=== PATIENT | female | born 2000 | race African-American/Black ===

== ENCOUNTER 2021-07-19 13:05 | Emergency (ER) | payer BC, SELFPAY ==
--- NOTE | ~2021-07-19 | US_ITS ---
EXAMINATION: US PELVIS CLINICAL INFORMATION: Severe abdominal pain COMPARISON: CT 07/19/2021 TECHNIQUE: Ultrasound of the pelvis is performed using both transabdominal and transvaginal transducers along with Doppler. Transvaginal imaging is performed due to inadequate visualization transabdominally. FINDINGS: The uterus measures 6.6 cm in length and 3.3 x 3.8 cm in AP and transverse dimensions. The endometrial stripe measures 1.3 cm in thickness. The right ovary measures 3.3 x 2.5 x 2.5 cm and appears unremarkable. The left ovary measures 6.3 x 4.1 x 5.3 cm and contains a complex cystic structure measuring 4.7 x 4.2 x 4.6 cm. This structure contains some anechoic and hypoechoic components as well as several septations. Doppler evaluation demonstrates normal-appearing arterial and venous waveforms in the bilateral ovaries. Moderate amount of pelvic free fluid is noted. US/US pelvic and transvaginal IMPRESSION: Complex cystic structure in the left ovary measuring up to 4.7 cm, in keeping with recent CT findings. Follow-up ultrasound in 6-12 weeks is recommended to assess for resolution. Redemonstrated pelvic free fluid.
--- NOTE | ~2021-07-19 | US_ITS ---
EXAMINATION: US PELVIS CLINICAL INFORMATION: Severe abdominal pain COMPARISON: CT 07/19/2021 TECHNIQUE: Ultrasound of the pelvis is performed using both transabdominal and transvaginal transducers along with Doppler. Transvaginal imaging is performed due to inadequate visualization transabdominally. FINDINGS: The uterus measures 6.6 cm in length and 3.3 x 3.8 cm in AP and transverse dimensions. The endometrial stripe measures 1.3 cm in thickness. The right ovary measures 3.3 x 2.5 x 2.5 cm and appears unremarkable. The left ovary measures 6.3 x 4.1 x 5.3 cm and contains a complex cystic structure measuring 4.7 x 4.2 x 4.6 cm. This structure contains some anechoic and hypoechoic components as well as several septations. Doppler evaluation demonstrates normal-appearing arterial and venous waveforms in the bilateral ovaries. Moderate amount of pelvic free fluid is noted. US/US pelvic ovarian doppler IMPRESSION: Complex cystic structure in the left ovary measuring up to 4.7 cm, in keeping with recent CT findings. Follow-up ultrasound in 6-12 weeks is recommended to assess for resolution. Redemonstrated pelvic free fluid.
--- NOTE | ~2021-07-19 | CT_ITS ---
EXAMINATION: CT ABDOMEN AND PELVIS WITH CONTRAST CLINICAL INFORMATION: Severe right lower quadrant pain COMPARISON: None TECHNIQUE: Multidetector volumetric images were obtained from the superior aspect of the liver through the pubic symphysis following administration 85 mL of Omnipaque 350 intravenous contrast. Sagittal and coronal reformatted images were obtained on the technologist's workstation. Oral contrast: No This CT examination was performed using dose optimization techniques as appropriate, variously including the following: *Automated exposure control *Adjustment of mA and/or kV according to patient size (this includes techniques or standardized protocols for targeted exams where dose is matched to indication/reason for exam; i.e. extremities or head) *Use of iterative reconstruction technique DLP: 330 mGy-cm FINDINGS: LUNG BASES: The visualized lung bases are unremarkable. LIVER, GALLBLADDER, AND BILIARY TREE: The liver is normal in size, shape, and attenuation. No focal hepatic lesion or biliary ductal dilatation is present. The gallbladder is unremarkable with no evidence of radiopaque gallstones, gallbladder wall thickening, or obvious pericholecystic inflammatory changes. PANCREAS: Unremarkable. SPLEEN: Unremarkable. ADRENAL GLANDS: Unremarkable. KIDNEYS AND URETERS: Bilateral nephrograms are symmetric. No hydronephrosis or obstructing calculus identified. BLADDER: Unremarkable. GASTROINTESTINAL TRACT: No evidence of bowel obstruction or significant wall thickening. The appendix is unremarkable. No free air is seen. ABDOMINAL WALL: No significant hernia is appreciated. LYMPH NODES: Normal. VASCULAR: Unremarkable. PELVIC VISCERA: There is a mildly complex cystic structure anterior to the uterus and superior to the bladder along the midline measuring approximately 5.3 x 3.9 cm in the axial plane and 4.0 cm in cranial caudal dimension. There is thin enhancement along the periphery as well as subtle nodular foci along the right lateral aspect. Appearance and location suggests left adnexal origin. Right adnexa appears unremarkable for patient age. Moderate amount of free fluid is present in the pelvis and lower abdomen. OSSEOUS STRUCTURES: Unremarkable. CT/CT abdomen pelvis w con IMPRESSION: Mildly complex cystic structure along the midline in the anterior pelvis measuring up to 5.3 cm, suggestive of origin from the left adnexa; this may reflect a complex ovarian cyst though a cystic mass cannot be excluded. Moderate amount of associated free fluid in the pelvis and lower abdomen. Further assessment with pelvic ultrasound is recommended. Fleischner guidelines were followed.
[2021-07-19 13:30] VITALS: BP 119/70; PULSE 89; RESP 18; TEMP 36.7; O2SAT 99
[2021-07-19 16:41] LABS: MANUAL DIFF FLAG NO
[2021-07-19 16:44] LABS: Basophils Percent Auto 0.4 % (0-2); Eosinophils Absolute Auto 0.1 X10*3/uL (0.0-0.4); Eosinophils Percent Auto 0.8 % (0-4); Hematocrit 39.6 % (37.0-47.0); Hemoglobin 12.6 g/dl (12.0-16.0); Imm Gran Abs Auto 0.01 X10*3/uL (0.00-0.03); Imm Gran Pct Auto 0.1 % (0.0-0.4); Lymphocytes Absolute Auto 2.7 X10*3/uL (1.2-4.9); Lymphocytes Percent Auto 29.2 % (20-40); Mean Corpuscular HGB Conc 31.8 g/dl (31.0-35.0); Mean Corpuscular Volume 81.8 fL (80.0-98.0); Mean Platelet Volume 10.6 fL (9.4-12.3); Monocytes Absolute Auto 0.8 X10*3/uL (0.1-1.2); Monocytes Percent Auto 8.4 % (2-11); Neutrophils Absolute Auto 5.7 x10*3/uL (2.0-8.3); Neutrophils Percent Auto 61.1 % (45-73); Platelet Count 289 X10*3/uL (160-400); Red Blood Count 4.84 X10*6/uL (4.20-5.50); Red Cell Distribution Width 15.8 % (11.0-16.0); White Blood Count 9.3 X10*3/uL (4.8-10.8)
[2021-07-19 17:05] LABS: Alanine Aminotransferase 7 U/L (0-31); Albumin Level 4.2 g/dL (3.5-5.0); Blood Urea Nitrogen 6 mg/dL (9-16); Calcium 9.5 mg/dL (8.4-10.2); Estimated Glomerular Filt Rate > 60; Sodium 138 mmol/L (135-145); Total Protein 7.3 g/dL (6.5-8.0)
[2021-07-19 17:19] LABS: Alkaline Phosphatase 62 U/L (39-117); Anion Gap 11 (12-20); Aspartate Amino Transferase 14 U/L (5-31); Bilirubin Total 0.2 mg/dL (0.0-1.0); Carbon Dioxide 27 mmol/L (22-29); Chloride 104 mmol/L (96-108); Creatinine Clr Calc Pharmacy 109.5; Glucose Random 87 mg/dL (60-115)
[2021-07-19 18:52] LABS: Appearance Urine CLOUDY; Color Urine YELLOW; Glucose Urine UA NEG (NEG); Leukocyte Esterase Urine NEG (NEG); Nitrite Urine NEG (NEG); Specific Gravity - Urine 1.015 (1.005-1.025); Urine Blood NEG (NEG); Urine Ketones NEG (NEG); Urine Protein NEG (NEG-TRACE)
[2021-07-19 20:39] VITALS: BP 121/72; PULSE 66; RESP 17; O2SAT 100
--- NOTE | 2021-07-19 21:08 | ED_ITS ---
HPI - Abdominal Pain General Chief Complaint: Abdominal Pain Stated Complaint: RLQ PAIN W/URINATION Time Seen by Provider: 07/19/21 13:26 Source: patient Mode of arrival: ambulatory Limitations: no limitations History of Present Illness HPI narrative: This is a 20-year-old female with no known medical history presenting to the emergency department with complaints of severe right lower quadrant abdominal pain that started this morning. Patient tells me that this started when she was at work, the pain was so severe that she had to go home. She tells me that she has a constant pain to her right lower quadrant she rates it an 8/10. She tells me is worse with talking, walking, sitting and when she farts. Patient reports decreased appetite. She has no history of abdominal surgeries. Patient tells me she has no concern for . Last menstrual period was in November however she does have abnormal menses. She denies nausea, vomiting, fevers, chills, chest pain, shortness of breath, changes in bowel habits, dysuria, flank pain, urinary frequency and urgency. MD elicited complaint: abdominal pain Pertinent past history: none Onset (ago): day(s) (1) Pain Consistency: constant Location: RLQ and suprapubic Severity: severe Pain scale (0-10): 10 Quality: stabbing Radiation: none Migration to: no migration Exacerbating factors: movement and other (coughing, speaking, laughing, farting ) Relieving factors: nothing Associated symptoms: denies other symptoms Related Data Allergies Allergy/AdvReac Type Severity Reaction Status Date / Time Unable to Assess Allergy Verified 07/19/21 20:59 Review of Systems Review of Systems Constitutional : No Weight loss, No Fever, No Chills, No Fatigue, No Malaise, + anorexia ENT/Mouth : No sore throat, No Rhinorrhea Eyes: No Eye Pain, No Swelling, No Redness Cardiovascular : No Chest Pain, No SOB, No Dyspnea on Exertion, No Orthopnea, No Edema, No Palpitations Respiratory : No Cough, No Sputum, No Wheezing Gastrointestinal : No Nausea, No Vomiting, No Diarrhea, No Constipation, + abdominal Pain, No Hematochezia, No Melena Genitourinary : No Dysuria, No Urinary Frequency, No Hematuria, Musculoskeletal : No joint pain, No Myalgias, No Joint Swelling Skin : No Skin Lesions, No rash Neuro : No Weakness, No Numbness, No Dizziness, No Headache Psych : No Anxiety/Panic, No Depression All other systems reviewed and are negative Yes all other systems are reviewed and are negative Physical Exam Vital Signs: Vital Signs: Last Vital Signs Temp 98.0 F 07/19/21 13:30 Pulse 73 07/20/21 00:54 Resp 18 07/20/21 00:54 BP 117/40 L 07/20/21 00:54 Pulse Ox 100 07/20/21 00:54 BMI result Body Mass Index 20.0 VSS Appearance: Alert.? Oriented X3.? No acute distress.? Head: Normocephalic, atraumatic, no step-offs or deformities Eyes: Pupils equal, round and reactive to light.? ENT: Pharynx normal.? Neck: Normal inspection.? Neck supple.? CVS: Normal heart rate and rhythm.? Pulses normal.? Respiratory: No respiratory distress.? Breath sounds normal.? Abdomen: Soft and + Tenderness and right lower quadrant, positive McBurney's point, and Rovsing sign. Negative Capps sign. Negative psoas and obturator sign.? Skin: Skin warm and dry.? Normal skin color.? Normal skin turgor.? Extremities: No lower extremity edema.? No calf ttp. 5/5 strength to bilateral upper and lower extremities Back: No midline tenderness, no C-spine tenderness, full range of motion, no CVA tenderness bilaterally Neuro: Oriented X 3.? No motor deficit.? No sensory deficit. Course Reevaluation(s) Reevaluation #1: CBC within normal limits. Chemistry with no acute electrolyte abnormalities. Lipase and inflammatory markers pending. Urine clean. Time: 21:14 Reevaluation #2: CT scan with a complex cystic structure along the midline in the anterior pelvis measuring 5.3 cm suggesting origin from the left adnexa. At this time ovarian torsion cannot be ruled out patient uncomfortable and a lot of pain morphine will be given. An ultrasound ovarian Doppler will be ordered as this needs to be ruled out emergently. Time: 00:35 Reevaluation #3: Sign out given to . Dispo pending US. Time: 02:22 MDM - Abdominal Pain MDM Narrative Medical decision making narrative: 2111 20 yo f no pmhx presents with sever constant RLQ abdominal pain since this AM 8/10 w/ a/c anorexia. PE signficiacnt for + mcburneys point and rosving. Negative murphys sign Physical examination concerning for appendicitis will do a CT of the abdomen and pelvis with contrast. Patient is hemodynamically stable. Plan at this time is basic labs, imaging, urine. Medical Records Attestation: I reviewed the patient's medical records. Lab Data Attestation: I reviewed the patient's lab results. Result diagrams: 07/19/21 16:32 07/19/21 16:32 Labs: Lab Results 07/19/21 07/19/21 07/19/21 Range/Units 16:32 16:32 16:32 WBC 9.3 (4.8-10.8) X10*3/uL RBC 4.84 (4.20-5.50) X10*6/uL Hgb 12.6 (12.0-16.0) g/dl Hct 39.6 (37.0-47.0) % MCV 81.8 (80.0-98.0) fL MCH 26.0 L (27.0-33.0) pg MCHC 31.8 (31.0-35.0) g/dl RDW 15.8 (11.0-16.0) % Plt Count 289 (160-400) X10*3/uL MPV 10.6 (9.4-12.3) fL Immature Gran % (Auto) 0.1 (0.0-0.4) % Neut % (Auto) 61.1 (45-73) % Lymph % (Auto) 29.2 (20-40) % Hartley % (Auto) 8.4 (2-11) % Eos % (Auto) 0.8 (0-4) % Baso % (Auto) 0.4 (0-2) % Lymph # (Auto) 2.7 (1.2-4.9) X10*3/uL Hartley # (Auto) 0.8 (0.1-1.2) X10*3/uL Eos # (Auto) 0.1 (0.0-0.4) X10*3/uL Baso # (Auto) 0.0 (0.0-0.2) X10*3/uL Abs Immat Gran (auto) 0.01 (0.00-0.03) X10*3/uL Absolute Neuts (auto) 5.7 (2.0-8.3) x10*3/uL Absolute Nucleated RBC 0.000 (0.0-0.012) X10*3/uL Nucleated RBC % (auto) 0.0 (0.0-0.2) /100WBC ESR 10 (0-20) MM/HR Sodium 138 (135-145) mmol/L Potassium 4.0 (3.3-5.1) mmol/L Chloride 104 (96-108) mmol/L Carbon Dioxide 27 (22-29) mmol/L Anion Gap 11 L (12-20) BUN 6 L (9-16) mg/dL Creatinine 0.71 (0.5-1.4) mg/dL Estim Creat Clear Calc 109.5 Estimated GFR > 60 Random Glucose 87 (60-115) mg/dL Calcium 9.5 (8.4-10.2) mg/dL Total Bilirubin 0.2 (0.0-1.0) mg/dL AST 14 (5-31) U/L ALT 7 (0-31) U/L Alkaline Phosphatase 62 (39-117) U/L C-Reactive Protein 0.30 (< or = 0.50) mg/dL Total Protein 7.3 (6.5-8.0) g/dL Albumin 4.2 (3.5-5.0) g/dL Lipase 16 (8-78) U/L Beta HCG, Quant < 2 mIU/mL Urine Color Urine Appearance Urine pH (5.0-8.0) Ur Specific Orcas (1.005-1.025) Urine Protein (NEG-TRACE) MG/DL Urine Glucose (UA) (NEG) MG/DL Urine Ketones (NEG) MG/DL Urine Blood (NEG) Urine Nitrite (NEG) Ur Leukocyte Esterase (NEG) 07/19/21 Range/Units 18:45 WBC (4.8-10.8) X10*3/uL RBC (4.20-5.50) X10*6/uL Hgb (12.0-16.0) g/dl Hct (37.0-47.0) % MCV (80.0-98.0) fL MCH (27.0-33.0) pg MCHC (31.0-35.0) g/dl RDW (11.0-16.0) % Plt Count (160-400) X10*3/uL MPV (9.4-12.3) fL Immature Gran % (Auto) (0.0-0.4) % Neut % (Auto) (45-73) % Lymph % (Auto) (20-40) % Hartley % (Auto) (2-11) % Eos % (Auto) (0-4) % Baso % (Auto) (0-2) % Lymph # (Auto) (1.2-4.9) X10*3/uL Hartley # (Auto) (0.1-1.2) X10*3/uL Eos # (Auto) (0.0-0.4) X10*3/uL Baso # (Auto) (0.0-0.2) X10*3/uL Abs Immat Gran (auto) (0.00-0.03) X10*3/uL Absolute Neuts (auto) (2.0-8.3) x10*3/uL Absolute Nucleated RBC (0.0-0.012) X10*3/uL Nucleated RBC % (auto) (0.0-0.2) /100WBC ESR (0-20) MM/HR Sodium (135-145) mmol/L Potassium (3.3-5.1) mmol/L Chloride (96-108) mmol/L Carbon Dioxide (22-29) mmol/L Anion Gap (12-20) BUN (9-16) mg/dL Creatinine (0.5-1.4) mg/dL Estim Creat Clear Calc Estimated GFR Random Glucose (60-115) mg/dL Calcium (8.4-10.2) mg/dL Total Bilirubin (0.0-1.0) mg/dL AST (5-31) U/L ALT (0-31) U/L Alkaline Phosphatase (39-117) U/L C-Reactive Protein (< or = 0.50) mg/dL Total Protein (6.5-8.0) g/dL Albumin (3.5-5.0) g/dL Lipase (8-78) U/L Beta HCG, Quant mIU/mL Urine Color YELLOW Urine Appearance CLOUDY Urine pH 7.0 (5.0-8.0) Ur Specific Orcas 1.015 (1.005-1.025) Urine Protein NEG (NEG-TRACE) MG/DL Urine Glucose (UA) NEG (NEG) MG/DL Urine Ketones NEG (NEG) MG/DL Urine Blood NEG (NEG) Urine Nitrite NEG (NEG) Ur Leukocyte Esterase NEG (NEG) Critical Care Time Critical Care Time Critical Care Time: No Discharge Plan Discharge Clinical Impression: Ovarian cyst Patient Disposition: Still a Patient Instructions: Ovarian Cyst (ED) Additional Instructions: Take your medications as prescribed. If you were prescribed antibiotics today, it is important that you take your medication to their entirety, do not skip any doses, do not finish them early. Follow-up with your primary care provider this week. Call and schedule an a ppointment with OBGYN tomorrow. You can take ibuprofen every 6 hours, Tylenol every 4 as needed for pain or discomfort. Return to the emergency department with new or worsening symptoms. Such as wors ening pain, nausea, vomiting, diarrhea, fevers, chills, chest pain, shortness of breath, vaginal bleeding. In case of emergency call 911 Referrals: Physician,Cristhian Wan [Primary Care Provider] - 2 days Israel Minaya MD [Physician] - 1 day Stand Alone Forms: Work/School Release [facility] Past Medical History Attestation statement: The following information was validated with the patient. Source: old records reviewed and nursing notes reviewed Social History Social History Advance Directives: No Advance Directives Information Provided: No
[2021-07-19 21:21] LABS: Lipase 16 U/L (8-78)
[2021-07-19 21:59] LABS: Erythrocyte Sedimentation Rate 10 MM/HR (0-20)
[2021-07-19 22:29] LABS: HCG Quantitative < 2 mIU/mL
[2021-07-19] MEDS: iohexoL 350 MG/ML 100 ML INFUS..BTL 85 ML IV (23:19)
[2021-07-20] MEDS: Morphine Sulfate 2 MG/ML CARTRIDGE IVPUSH (00:41)
[2021-07-20 00:54] VITALS: BP 117/40; PULSE 73; RESP 18; O2SAT 100
[2021-07-20 02:00] VITALS: BP 91/49; PULSE 73; RESP 18; TEMP 36.7; O2SAT 100
[2021-07-20] MEDS: 0.9 % Sodium Chloride 1,000 ML 999 ML IV (02:46)
--- NOTE | 2021-07-20 02:50 | PC.NURSE ---
pt a&o, denies any sob or chest pain. Medicated per [facility]
[2021-07-20 04:07] VITALS: BP 115/70; PULSE 81; RESP 14; O2SAT 97
--- NOTE | 2021-07-20 04:15 | PC.NURSE ---
Iv removed, Reviewed discharge instructions and medications. Reviewed follow up appointment. Pt awaiting a [facility]. No sob or chest pain. no n/v. Pt able to ambulate with a steady gait.
== END 2021-07-20 04:28 | disposition home or self-care (01) ==
PROVIDERS: Physician Assistant; Emergency Provider Emergency Medicine
DX: N83.202 Unspecified ovarian cyst, left side (principal); R10.31 Right lower quadrant pain; R05.9 Cough, unspecified; R60.0 Localized edema; Z20.822 Contact with and (suspected) exposure to COVID-19; Z79.899 Other long term (current) drug therapy
CPT/HCPCS: 36415; 74177; 76830; 76856; 80053; 81003; 83690; 84702; 85025; 85652; 86140; 93975; 96361; 96374; 99284; J2270; Q9967

== ENCOUNTER 2023-09-23 11:57 | Emergency (ER) | payer OTHER, SELFPAY ==
--- NOTE | ~2023-09-23 | CT_ITS ---
EXAMINATION: CT CERVICAL SPINE WITHOUT CONTRAST CLINICAL INFORMATION: Neck pain COMPARISON: None available. TECHNIQUE: Section axial imaging with sagittal coronal reformats. This CT examination was performed using dose optimization techniques as appropriate, variously including the following: *Automated exposure control *Adjustment of mA and/or kV according to patient size (this includes techniques or standardized protocols for targeted exams where dose is matched to indication/reason for exam; i.e. extremities or head) *Use of iterative reconstruction technique DLP: 307 mGy-cm FINDINGS: No fracture or destructive process or alignment abnormality. Prevertebral soft tissues are normal. There is no encroachment on the spinal canal. CT/CT cervical spine wo IV con IMPRESSION: No fracture. Fleischner guidelines were followed.
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
[2023-09-23 12:12] VITALS: BP 109/78; PULSE 96; O2SAT 100
[2023-09-23 12:13] VITALS: BP 140/89; PULSE 77; RESP 16; TEMP 37.1; O2SAT 99; BMI 21.6
--- NOTE | 2023-09-23 12:23 | PC.NURSE ---
upon this nurse going into the room to triage the patient, the c-collar was found on the foot of the bed with the patient stating it fell off , pt refusing to have it placed back on, provider was notified of this.
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
[2023-09-23] MEDS: 0.9 % Sodium Chloride 1,000 ML 999 ML IV (13:46)
[2023-09-23 13:52] LABS: MANUAL DIFF FLAG NO
[2023-09-23 13:55] LABS: Basophils Absolute Auto 0.1 X10*3/uL (0.0-0.2); Eosinophils Percent Auto 0.2 % (0-4); Imm Gran Abs Auto 0.01 X10*3/uL (0.00-0.03); Imm Gran Pct Auto 0.2 % (0.0-0.4); Lymphocytes Absolute Auto 1.5 X10*3/uL (1.2-4.9); Lymphocytes Percent Auto 28.8 % (20-40); Mean Corpuscular HGB Conc 33.3 g/dl (31.0-35.0); Mean Corpuscular Hemoglobin 27.1 pg (27.0-33.0); Mean Corpuscular Volume 81.2 fL (80.0-98.0); Mean Platelet Volume 9.2 fL (9.4-12.3); Monocytes Absolute Auto 0.3 X10*3/uL (0.1-1.2); Monocytes Percent Auto 5.9 % (2-11); Neutrophils Absolute Auto 3.4 x10*3/uL (2.0-8.3); Neutrophils Percent Auto 63.9 % (45-73); Platelet Count 325 X10*3/uL (160-400); Red Blood Count 5.17 X10*6/uL (4.20-5.50); Red Cell Distribution Width 15.6 % (11.0-16.0); White Blood Count 5.2 X10*3/uL (4.8-10.8)
--- NOTE | 2023-09-23 14:30 | PC.NURSE ---
Assumed care of patient at this time.
[2023-09-23 14:32] LABS: Alanine Aminotransferase 30 U/L (0-31); Albumin Level 3.9 g/dL (3.5-5.0); Alkaline Phosphatase 90 U/L (39-117); Anion Gap 16 (12-20); Aspartate Amino Transferase 65 U/L (5-31); Bilirubin Total 0.5 mg/dL (0.0-1.0); Blood Urea Nitrogen 5 mg/dL (9-16); Calcium 8.9 mg/dL (8.4-10.2); Carbon Dioxide 23 mmol/L (22-29); Chloride 103 mmol/L (96-108); Creatinine Clr Calc Pharmacy 111.4; Estimated Glomerular Filt Rate > 60; Glucose Random 74 mg/dL (60-115); HCG Quantitative < 2 mIU/mL; Potassium 3.8 mmol/L (3.3-5.1); Sodium 138 mmol/L (135-145); Total Protein 7.4 g/dL (6.5-8.0)
[2023-09-23 15:02] LABS: Influenza A PCR NEGATIVE (Negative); Influenza B PCR NEGATIVE (Negative); Resp Syncy Virus RNA Qual PCR NEGATIVE (Negative); SARS COV2 PCR INHOUSE NEGATIVE (Negative)
[2023-09-23 15:50] VITALS: BP 140/89; PULSE 77; RESP 18; TEMP 37.1; O2SAT 99
== END 2023-09-23 15:51 | disposition home or self-care (01) ==
PROVIDERS: Physician Assistant Medical; Emergency Provider Emergency Medicine
DX: S06.0X0A Concussion without loss of consciousness, initial encounter (principal); W20.8XXA Other cause of strike by thrown, projected or falling object, initial encounter; Y93.9 Activity, unspecified; Y92.9 Unspecified place or not applicable; Y99.9 Unspecified external cause status; Z03.818 Encounter for observation for suspected exposure to other biological agents ruled out
CPT/HCPCS: 0241U; 70450; 72125; 80053; 84702; 85025; 96360; 99283; 99284